=== PATIENT | female | born 1940 | race Caucasian/White ===

== ENCOUNTER 2017-12-31 07:13 | Day surgery (SDC) | payer MEDICARE ==
[2017-12-30 13:29] LABS: BASOPHILS % (AUTO) 1.2 % (0.0-5.0); EOSINOPHILS % (AUTO) 2.9 % (0.0-8.0); HEMATOCRIT 39.9 % (36-48); LYMPHOCYTES % (AUTO) 23.1 % (21.0-51.0); MEAN CORPUSCULAR HEMOGLOBIN 31.6 pg (27.0-33.0); MEAN CORPUSCULAR HGB CONC 34.2 g/dL (32.0-36.0); MEAN CORPUSCULAR VOLUME 92.4 fL (79-99); MONOCYTES % (AUTO) 9.8 % (3.0-13.0); PLATELET COUNT (AUTO) 299 K/uL (130-400); RED BLOOD CELL COUNT(AUTO) 4.32 MIL/uL (4.00-5.50); RED CELL DISTRIBUTION WIDTH 12.8 % (11.0-15.5); WHITE BLOOD COUNT (AUTO) 6.4 K/uL (4.8-10.8)
[2017-12-30 13:33] VITALS: BP 164/74
[2017-12-30 13:37] LABS: CREATININE 0.8 mg/dL (0.5-1.5); POTASSIUM 3.5 mmol/L (3.5-5.1)
[2017-12-30 13:42] LABS: APPEARANCE,URINE Cloudy (CLEAR); BILIRUBIN,URINE Negative (NEGATIVE); COLOR,URINE Yellow (YELLOW); GLUCOSE, URINE (UA) Negative (NEGATIVE); KETONES,URINE Negative (NEGATIVE); LEUKOCYTE ESTERASE ,URINE Moderate (NEGATIVE); NITRATE,URINE Negative (NEGATIVE); OCCULT BLOOD,URINE Small (NEGATIVE); PH,URINE 5.5 (5.0-8.0); PROTEIN,URINE Negative (NEGATIVE); UROBILINOGEN,URINE 0.2 mg/dL (0.2-1.0)
[2017-12-30 14:02] LABS: INR 0.98 (0.85-1.15); PARTIAL THROMBOPLASTIN TIME 29.2 SEC (26.3-35.5); PROTHROMBIN TIME 10.3 SEC (9.6-11.6)
[2017-12-30 14:08] LABS: BACTERIA,URINE Few /HPF (None Seen); RBC,URINE 0-1 /HPF (0-1); SQUAMOUS EPITHELIAL CELL,UR Few /HPF (0-2)
[~2017-12-31] VITALS: Ht 158.8 cm; Wt 66.5 kg
[2017-12-31] VITALS (10 sets, daily range): BP systolic 127–162; BP diastolic 52–84
[~2017-12-31 07:13] MED LIST: ACETAMINOPHEN 325 MG TAB PO PRN; ASPI-555 PO; CALC600T12 PO; CEFTRIAXONE SODIUM 1 GM IVP SCH; CLOP75TA14 PO; HYDR25TA PO; LOSA50TA25 PO; OXYB10TA PO; SODIUM CHLORIDE 0.9% 500ML 500 ML IV SCH
[2017-12-31] MEDS ORDERED: IOHEXOL 350 MG/ML 100ML INFUS..BTL IV ONE (10:33)
[2017-12-31] MEDS ORDERED: NITROGLYCERIN 5 MG/ML 10 ML VIAL IV ONE (10:33)
[2017-12-31] MEDS ORDERED: IOHEXOL-350 50ML VIAL IV ONE (10:33)
[2017-12-31] MEDS ORDERED: LIDOCAINE HCL-MPF 2% 5ML VIAL ONE ×2 (10:33→11:00)
[2017-12-31] MEDS ORDERED: IODIXANOL 320 MG/ML 100 ML VIAL ONE (10:34)
[2017-12-31] MEDS ORDERED: FENTANYL CITRATE PF 50 MCG/1 ML 2ML VIAL ONE (10:54)
[2017-12-31] MEDS ORDERED: MIDAZOLAM HCL 1 MG/ML 2ML VIAL ONE (10:54)
[2017-12-31] MEDS ORDERED: SODIUM CHLORIDE 0.9% 1000ML 1,000 ML IV ONE (10:59)
[2017-12-31] MEDS ORDERED: HEPARIN SODIUM 1000UNIT/ML 10ML VIAL ONE (11:01)
[2017-12-31] MEDS ORDERED: LABETALOL HCL 5 MG/ML 20ML VIAL IV ONE (11:25)
[2017-12-31] MEDS ORDERED: GLUCAGON 1MG KIT 1 MG ML IM PRN (11:30)
[2017-12-31] MEDS ORDERED: SODIUM CHLORIDE 0.9% 1000ML 1,000 ML IV SCH (11:30)
[2017-12-31] MEDS ORDERED: DEXTROSE 50%-WATER 50 ML DISP.SYRIN IV PRN (11:30)
== END 2017-12-31 16:10 | disposition home or self-care (01) ==
LOC: DAH 07:13
PROVIDERS: ATTEND Internal Medicine Cardiovascular Disease
DX: I65.22 Occlusion and stenosis of left carotid artery (principal); R07.9 Chest pain, unspecified; Z98.890 Other specified postprocedural states; Z79.899 Other long term (current) drug therapy; I10 Essential (primary) hypertension; E78.5 Hyperlipidemia, unspecified; Z85.3 Personal history of malignant neoplasm of breast; K21.9 Gastro-esophageal reflux disease without esophagitis; Z86.010 Personal history of colon polyps; M19.90 Unspecified osteoarthritis, unspecified site; M81.0 Age-related osteoporosis without current pathological fracture
CPT/HCPCS: 36222; 36225; 36415; 71045; 80048; 81001; 85025; 85610; 85730; 93005; 93458; A4218; A4606; C1894 ×2; J0696; J1644 ×2; J2250; J3010; J3490 ×4; J7030; Q9965; Q9967 ×3; 99156; 99157

== ENCOUNTER 2018-03-05 12:15 | Inpatient (IN) | payer MEDICARE ==
[~2018-03-05] VITALS: Ht 162.6 cm; Wt 69.6 kg
[~2018-03-05 12:15] MED LIST changes: -ACETAMINOPHEN 325 MG TAB PO PRN; -ASPI-555 PO; -CEFTRIAXONE SODIUM 1 GM IVP SCH; -CLOP75TA14 PO; -SODIUM CHLORIDE 0.9% 500ML 500 ML IV SCH
[2018-03-05 15:06] LABS: BASOPHILS % (AUTO) 2.6 % (0.0-5.0); HEMATOCRIT 37.5 % (36-48); LYMPHOCYTES % (AUTO) 23.2 % (21.0-51.0); MEAN CORPUSCULAR HEMOGLOBIN 31.4 pg (27.0-33.0); MEAN CORPUSCULAR HGB CONC 33.7 g/dL (32.0-36.0); MEAN CORPUSCULAR VOLUME 93.4 fL (79-99); MONOCYTES % (AUTO) 9.3 % (3.0-13.0); NEUTROPHILS % (AUTO) 62.9 % (40.0-77.0); PLATELET COUNT (AUTO) 328 K/uL (130-400); RED BLOOD CELL COUNT(AUTO) 4.02 MIL/uL (4.00-5.50); RED CELL DISTRIBUTION WIDTH 12.9 % (11.0-15.5); WHITE BLOOD COUNT (AUTO) 7.9 K/uL (4.8-10.8)
[2018-03-05 15:14] LABS: CREATININE 0.8 mg/dL (0.5-1.5); POTASSIUM 3.8 mmol/L (3.5-5.1)
[2018-03-05 15:23] VITALS: BP 149/70
[2018-03-05] MEDS ORDERED: VITAMIN D PO (15:27)
[2018-03-05] MEDS ORDERED: ASPI-1026 PO (15:27)
[2018-03-05] MEDS ORDERED: MAGNESIUM PO (15:27)
[2018-03-18] VITALS (26 sets, daily range): BP systolic 67–164; BP diastolic 40–77
[2018-03-18] MEDS: CEFAZOLIN SODIUM 1 GM VIAL IVP SCH ×4 (06:00→15:06)
[2018-03-18] MEDS ORDERED: LIDOCAINE HCL 1% 20 ML VIAL ONE (06:44)
[2018-03-18] MEDS ORDERED: MANNITOL 20% 500ML BAG 500 ML IV ONE (06:44)
[2018-03-18] MEDS ORDERED: BUPIVACAINE/EPI/PF 0.25% 50 ML VIAL ONE (06:44)
[2018-03-18] MEDS ORDERED: THROMBIN-JMI 20000 UNIT KIT TP ONE (06:45)
[2018-03-18] MEDS ORDERED: BACITRACIN 50,000 UNIT VIAL ONE (06:45)
[2018-03-18] MEDS ORDERED: LACTATED RINGERS 1000ML 1,000 ML IV ONE (06:51)
[2018-03-18] MEDS ORDERED: LIDOCAINE PF 2% 5ML ABBOJECT ONE ×2 (06:53→08:55)
[2018-03-18] MEDS ORDERED: NEOSTIGMINE 5MG/5ML SYR IV ONE (06:54)
[2018-03-18] MEDS ORDERED: ONDANSETRON HCL 4 MG/2 ML VIAL ONE ×2 (06:54→09:29)
[2018-03-18] MEDS ORDERED: PROPOFOL 10 MG/ML 20ML VIAL IV ONE (06:54)
[2018-03-18] MEDS ORDERED: DEXAMETHASONE SOD PHOSPHATE 10MG/ML 1ML VIAL ONE ×2 (06:54→07:06)
[2018-03-18] MEDS ORDERED: MIDAZOLAM HCL 1 MG/ML 2ML VIAL ONE ×2 (06:54→07:09)
[2018-03-18] MEDS ORDERED: GLYCOPYRROLATE 1 MG/5 ML SYRINGE ONE (06:54)
[2018-03-18] MEDS ORDERED: FENTANYL CITRATE PF 50 MCG/1 ML 2ML VIAL ONE ×3 (06:55→09:25)
[2018-03-18] MEDS ORDERED: ROCURONIUM 10MG/1ML SYR 10 MG/ML ML ONE (06:55)
[2018-03-18] MEDS ORDERED: NITROGLYCERIN 50 MG/D5% WATER 1 BOT ONE (06:57)
[2018-03-18] MEDS ORDERED: EPHEDRINE SULFATE 50 MG/ML AMPULE ONE (07:07)
[2018-03-18] MEDS ORDERED: PHENYLEPHRINE HCL 10 MG/ML 1ML VIAL IV ONE (08:53)
[2018-03-18] MEDS ORDERED: PROPRANOLOL HCL 1 MG/ML VIAL IVP ONE (09:15)
[2018-03-18] MEDS ORDERED: ESMOLOL HCL 10 MG/ML 10 ML VIAL ONE ×2 (09:20→10:15)
[2018-03-18] MEDS ORDERED: METOCLOPRAMIDE 10 MG/2 ML VIAL ONE (09:28)
[2018-03-18] MEDS: HEPARIN SODIUM 5000 UNIT/ML 5,000 UNIT in LACTATED RINGERS 1000ML 1,000 ML IV SCH ×2 (09:41→21:48)
[2018-03-18] MEDS: DEXAMETHASONE SOD PHOSPHATE 4 MG/ML 1ML VIAL IVP SCH ×3 (09:45→20:56)
[2018-03-18] MEDS ORDERED: HYDROCODONE/ACETAMINOPHEN 5/325 MG TAB PO PRN (09:45)
[2018-03-18] MEDS ORDERED: MORPHINE SULFATE 2 MG/ML 1ML SYG IVP PRN (09:45)
[2018-03-18] MEDS ORDERED: NALOXONE HCL 0.4 MG/1 ML ML ONE (10:07)
[2018-03-18] MEDS: BENZOCAINE/MENTH/CETYLPYRD CL 1 EACH LOZENGE MM PRN ×2 (15:05→19:09)
[2018-03-18] MEDS ORDERED: CEFAZOLIN SODIUM 1 GM VIAL ONE (15:17)
[2018-03-18] MEDS ORDERED: OXYBUTYNIN 5 MG TAB.SR.24H PO SCH (21:00)
[2018-03-18] MEDS: LOSARTAN 50 MG TABLET PO SCH (21:00)
[2018-03-18] MEDS ORDERED: ASPIRIN 325 MG TABLET PO SCH (21:00)
[2018-03-19] VITALS (10 sets, daily range): BP systolic 98–137; BP diastolic 47–65
[2018-03-19] MEDS: BENZOCAINE/MENTH/CETYLPYRD CL 1 EACH LOZENGE MM PRN ×2 (03:45→08:29)
[2018-03-19] MEDS: DEXAMETHASONE SOD PHOSPHATE 4 MG/ML 1ML VIAL IVP SCH (03:45)
[2018-03-19] MEDS: HEPARIN SODIUM 5000 UNIT/ML 5,000 UNIT in LACTATED RINGERS 1000ML 1,000 ML IV SCH (05:43)
[2018-03-19] MEDS: LOSARTAN 50 MG TABLET PO SCH (08:29)
[2018-03-19] MEDS ORDERED: ASPIRIN 325 MG TABLET PO SCH (09:00)
[2018-03-19] MEDS ORDERED: MAGNESIUM PO SCH (09:00)
[2018-03-19] MEDS ORDERED: HYDROCHLOROTHIAZIDE 25 MG TABLET PO SCH (09:00)
[2018-03-19] MEDS ORDERED: CALCIUM CARBONATE 500 MG TABLET PO SCH (09:00)
[2018-03-19] MEDS ORDERED: VIT D PO SCH (09:00)
== END 2018-03-19 09:51 | disposition home or self-care (01) | DRG 39 ==
LOC: EDSTATUS 12:15 → DAHIP 03-18 06:08 → 2BH 03-18 11:38
PROVIDERS: ADMIT Neurological Surgery; ATTEND Neurological Surgery
PROC: 03CL0Z6 (ICD-10-PCS; principal; 2018-03-18 08:13)
PROC: 4A1104G Monitoring of Peripheral Nervous Electrical Activity, Intraoperative, Open Approach (ICD-10-PCS; 2018-03-18 08:13)
DX: I65.22 Occlusion and stenosis of left carotid artery (principal); K21.9 Gastro-esophageal reflux disease without esophagitis; I10 Essential (primary) hypertension
CPT/HCPCS: 36415; 80048; 85025; A4218; A4344; J0690; J1100; J1644; J1800; J2001; J2250; J2310; J2370; J2405; J2704; J2710; J2765; J3010; J3490; J7030; J7040; J7120

== ENCOUNTER → 2019-10-10 | Outpatient (CLI) | payer MEDICARE ==
[~2019-10-10] MED LIST changes: +ASPI-1026 PO; -CALC600T12 PO; +CALC600T15 PO; -LOSA50TA25 PO; +LOSA50TA64 PO; +MAGNESIUM PO; -OXYB10TA PO; +OXYB10TA30 PO; +VITAMIN D PO
== END | disposition home or self-care (01) ==
LOC: RAH 12:46
PROVIDERS: ATTEND Family Medicine
DX: I65.23 Occlusion and stenosis of bilateral carotid arteries (principal)
CPT/HCPCS: 93880